=== PATIENT | female | born 1980 | race Caucasian/White ===

== ENCOUNTER 2023-01-24 06:55 | Emergency (ER) | payer SELFPAY ==
[2023-01-24 07:39] LABS: Lymphocytes % 26.6 % (15.3-44.8); MCV 93.3 fL (80-100); Platelets 250 thou/uL (152-406); RBC Red Blood Cell Count 4.28 M/uL (3.86-4.86)
[2023-01-24] MEDS ORDERED: ALBUTEROL 2.5 MG/3 ML NEB SOL ONE (07:55)
[2023-01-24] MEDS ORDERED: IPRATROPIUM BROM 0.5MG/2.5ML ONE (07:55)
[2023-01-24 07:57] LABS: Albumin 3.4 g/dL (3.4-5.0); Bilirubin Total 0.2 mg/dL (0.2-1.0); Potassium 3.3 mEq/L (3.5-5.1); Protein, Total 6.9 g/dL (6.4-8.2); Troponin High Sensitivity 14.2 pg/mL (<58.9)
--- NOTE | 2023-01-24 08:13 | RAD REPORT ---
EXAM DESCRIPTION: Tania Single View01/24/2023 7:57 am CLINICAL HISTORY: Shortness of breath COMPARISON: none FINDINGS: The lungs appear clear of acute infiltrate. The heart is normal size IMPRESSION: No acute abnormalities displayed
--- NOTE | 2023-01-24 08:27 | EDPHYS ---
Physician Documentation [facility] Name: Sparkle Fang Age: 42 yrs Sex: Female : 1980 Arrival Date: 01/24/2023 Time: 06:55 Bed 6 Private MD: ED Physician Filiberto Rausch HPI: 01/24 07:29 This 42 yrs old Female presents to ER via EMS with complaints of Asthma. rt 07:29 Patient presents to the ED with asthma exacerbation. She was seen multiple times at [facility] for the same, was recently admitted and is currently on a dose of steroids. She states that her symptoms acutely worsened at about 6 AM. Patient received a DuoNeb, Solu-Medrol by EMS, states that this is modestly improved her symptoms. Denies other acute complaints at this time. Symptoms are moderate severity, no other aggravating or alleviating factors.. Historical: - Allergies: 07:06 PENICILLINS; ha1 07:06 Latex, Natural Rubber; ha1 - PMHx: 07:06 Asthma; ha1 - Immunization history:: Adult Immunizations up to date. - Social history:: Smoking status: Patient/guardian denies using tobacco, Stopped _ months ago 1. - Family history:: not pertinent. ROS: 07:29 Constitutional: Negative for fever, chills, and weight loss, Cardiovascular: Negative rt for chest pain, palpitations, and edema, Abdomen/GI: Negative for abdominal pain, nausea, vomiting, diarrhea, and constipation, MS/Extremity: Negative for injury and deformity, Skin: Negative for injury, rash, and discoloration, Neuro: Negative for headache, weakness, numbness, tingling, and seizure, Psych: Negative for depression, anxiety, suicide ideation, homicidal ideation, and hallucinations. 07:29 Respiratory: Positive for cough, shortness of breath, wheezing. Exam: 07:29 Constitutional: This is a well developed, well nourished patient who is awake, alert, rt and in no acute distress. Head/Face: Normocephalic, atraumatic. Chest/axilla: Normal chest wall appearance and motion. Nontender with no deformity. No lesions are appreciated. Cardiovascular: Regular rate and rhythm with a normal S1 and S2. No gallops, murmurs, or rubs. Normal PMI, no JVD. No pulse deficits. Abdomen/GI: Soft, non-tender, with normal bowel sounds. No distension or tympany. No guarding or rebound. No evidence of tenderness throughout. Skin: Warm, dry with normal turgor. Normal color with no rashes, no lesions, and no evidence of cellulitis. MS/ Extremity: Pulses equal, no cyanosis. Neurovascular intact. Full, normal range of motion. Neuro: Awake and alert, GCS 15, oriented to person, place, time, and situation. Cranial nerves II-XII grossly intact. Motor strength 5/5 in all extremities. Sensory grossly intact. Cerebellar exam normal. Normal gait. Psych: Awake, alert, with orientation to person, place and time. Behavior, mood, and affect are within normal limits. 07:29 Respiratory: Faint wheezes heard on all lung luna, no respiratory distress. 08:03 ECG was reviewed by the Attending Physician. rt Vital Signs: 07:01 BP 132 / 75; Pulse 88; Resp 20 S; Temp 97.9(O); Pulse Ox 95% on 2 lpm NC; Weight 95.25 ha1 kg; Height 5 ft. 8 in. ; 07:50 BP 133 / 80; Pulse 78; Resp 22; Pulse Ox 100% on Nebulizer Mask; ld1 08:35 BP 144 / 86; Pulse 82; Resp 18; Pulse Ox 100% on R/A; Pain 0/10; ld1 07:01 Body Mass Index 31.93 (95.25 kg, 172.72 cm) ha1 08:35 Pain Scale: Adult ld1 MDM: 07:01 Patient medically screened. rt 08:28 Differential diagnosis: acute asthma, CHF, Pneumonia. Antibiotic administration: Not rt indicated, the patient does not have an appreciated infiltrate. Data reviewed: vital signs, nurses notes, lab test result(s), EKG, radiologic studies. I considered the following discharge prescriptions or medication management in the emergency department Medications were administered in the Emergency Department. See MAR. Independent interpretation of the following test(s) in the Emergency Department X-Ray: My interpretation is No consolidation seen on interpretation of the x-ray images. Test considered but Not performed: CT: Low suspicion for PE, CT angiogram not indicated. Care significantly affected by the following chronic conditions: Asthma. Counseling: I had a detailed discussion with the patient and/or guardian regarding the historical points, exam findings, and any diagnostic results supporting the discharge/admit diagnosis, lab results, radiology results, the need for outpatient follow up, Already taking steroids, repeat prescription not needed. Response to treatment: the patient's symptoms have markedly improved after treatment. 01/24 07:08 Order name: CBC with Diff; Complete Time: 08:04 rt 01/24 07:08 Order name: CMP; Complete Time: 08:04 rt 01/24 07:08 Order name: Troponin High Sensitivity; Complete Time: 08:04 rt 01/24 07:08 Order name: BNP; Complete Time: 08:04 rt 01/24 07:08 Order name: Chest Single View XRAY; Complete Time: 08:14 rt 01/24 07:08 Order name: EKG; Complete Time: 07:09 rt 01/24 07:08 Order name: EKG - Nurse/Tech; Complete Time: 07:49 rt EC:03 Rate is 78 beats/min. Rhythm is regular, Normal Sinus Rhythm with No ectopy. QRS [place] rt is Normal. NV interval is normal. QRS interval is normal. QT interval is normal. No Q waves. T waves are Normal. No ST changes noted. Interpreted by me. Administered Medications: 07:49 Drug: Albuterol Inhalation 2.5 mg Route: Inhalation; ld1 07:49 Drug: Ipratropium Inhalation Aerosol 0.5 mg Route: Inhalation; ld1 Disposition Summary: 01/24/23 08:26 Discharge Ordered Location: Home rt Problem: an acute exacerbation rt Symptoms: have improved rt Condition: Stable rt Diagnosis - Unspecified asthma with (acute) exacerbation rt Followup: rt - With: Private Physician - When: 2 - 3 days - Reason: Discharge Instructions: - Discharge Summary Sheet rt - Asthma, Adult rt Forms: - Medication Reconciliation Form rt - Thank You Letter rt - Antibiotic Education rt - Prescription Opioid Use rt - Patient Portal Instructions rt - Leadership Thank You Letter rt Prescriptions: - Albuterol Sulfate 2.5 mg /3 mL (0.083 %) Inhalation Solution for Nebulization - inhale 1 unit by NEBULIZATION route every 4 hours As needed; 90 unit; Refills: rt 0, Product Selection Permitted Signatures: Dispatcher [employer] Ary Sam RN RN ld1 Berenice May RN RN ha1 Filiberto Rausch MD MD rt
--- NOTE | 2023-01-24 08:27 | ER ---
Nurse's Notes [facility] Name: Sparkle Fang Age: 42 yrs Sex: Female : 1980 Arrival Date: 01/24/2023 Time: 06:55 Bed 6 Private MD: Diagnosis: Unspecified asthma with (acute) exacerbation Presentation: 01/24 07:01 Chief complaint: EMS states: 42 year old female reports shortness of breath. Pt. ha1 believes it is due to her asthma. on route breathing treatment and Solu-Medrol was given. Coronavirus screen: Vaccine status: Patient reports being unvaccinated. Ebola Screen: No symptoms or risks identified at this time. Initial Sepsis Screen: Does the patient meet any 2 criteria? No. Patient's initial sepsis screen is negative. Does the patient have a suspected source of infection? No. Patient's initial sepsis screen is negative. Risk Assessment: Do you want to hurt yourself or someone else? Patient reports no desire to harm self or others. Onset of symptoms was January 24, 2023. 07:01 Method Of Arrival: EMS: [facility] 07:01 Acuity: DARON 3 ha1 Triage Assessment: 06:58 General: Appears uncomfortable, Behavior is cooperative. Pain: Denies pain. EENT: No ha1 signs and/or symptoms were reported regarding the EENT system. Neuro: Level of Consciousness is awake, alert, obeys commands, Oriented to person, place, time, situation. Cardiovascular: Reports shortness of breath, Patient's skin is warm and dry. Respiratory: Reports shortness of breath at rest Airway is patent Respiratory effort is even, unlabored, Respiratory pattern is regular, symmetrical, Breath sounds with wheezes bilaterally. GI: No signs and/or symptoms were reported involving the gastrointestinal system. : No signs and/or symptoms were reported regarding the genitourinary system. Derm: Skin is pink, warm \T\ dry. Musculoskeletal: Circulation, motion, and sensation intact. Range of motion: intact in all extremities. Historical: - Allergies: 07:06 PENICILLINS; ha1 07:06 Latex, Natural Rubber; ha1 - PMHx: 07:06 Asthma; ha1 - Immunization history:: Adult Immunizations up to date. - Social history:: Smoking status: Patient/guardian denies using tobacco, Stopped _ months ago 1. - Family history:: not pertinent. Screenin:08 Abuse screen: Denies threats or abuse. Denies injuries from another. Nutritional ha1 screening: No deficits noted. Tuberculosis screening: No symptoms or risk factors identified. 07:50 [facility] ED Fall Risk Assessment (Adult) History of falling in the last 3 months, ld1 including since admission No falls in past 3 months (0 pts). Assessment: 07:50 General: Appears in no apparent distress. comfortable, Behavior is calm, cooperative, ld1 appropriate for age. Pain: Denies pain. Neuro: Level of Consciousness is awake, alert, obeys commands, Oriented to person, place, time, situation. Cardiovascular: Capillary refill < 3 seconds Patient's skin is warm and dry. Rhythm is sinus rhythm. Respiratory: Airway is patent Respiratory effort is even, unlabored. GI: Abdomen is round non-distended. : No signs and/or symptoms were reported regarding the genitourinary system. EENT: No signs and/or symptoms were reported regarding the EENT system. Derm: No signs and/or symptoms reported regarding the dermatologic system. Musculoskeletal: No signs and/or symptoms reported regarding the musculoskeletal system. 08:35 Reassessment: Patient appears in no apparent distress at this time. No changes from ld1 previously documented assessment. Patient and/or family updated on plan of care and expected duration. Pain level reassessed. Patient is alert, oriented x 3, equal unlabored respirations, skin warm/dry/pink. Patient states feeling better. Patient states symptoms have improved. Vital Signs: 07:01 BP 132 / 75; Pulse 88; Resp 20 S; Temp 97.9(O); Pulse Ox 95% on 2 lpm NC; Weight 95.25 ha1 kg; Height 5 ft. 8 in. ; 07:50 BP 133 / 80; Pulse 78; Resp 22; Pulse Ox 100% on Nebulizer Mask; ld1 08:35 BP 144 / 86; Pulse 82; Resp 18; Pulse Ox 100% on R/A; Pain 0/10; ld1 07:01 Body Mass Index 31.93 (95.25 kg, 172.72 cm) ha1 08:35 Pain Scale: Adult ld1 ED Course: 06:58 Patient arrived in ED. as6 06:58 Patient has correct armband on for positive identification. Bed in low position. Call ha1 light in reach. Side rails up X 1. 06:59 Filiberto Rausch MD is Attending Physician. rt 07:06 Triage completed. ha1 07:08 Maintain EMS IV. Dressing intact. Site clean \T\ dry. Gauge \T\ site: 20 darvin right AC. hernandez 1 07:33 CMP Sent. ds4 07:33 CBC with Diff Sent. ds4 07:49 Ary Varma, RN is Primary Nurse. ld1 07:50 No provider procedures requiring assistance completed. ld1 07:50 surveillance monitor on. Pulse ox on. NIBP on. Door closed. Noise minimized. Warm blanket ld1 given. 07:59 Chest Single View XRAY In Process Unspecified. EDMS 08:35 IV discontinued, intact, bleeding controlled, No redness/swelling at site. ld1 08:35 Arm band placed on right wrist. ld1 Administered Medications: 07:49 Drug: Albuterol Inhalation 2.5 mg Route: Inhalation; ld1 07:49 Drug: Ipratropium Inhalation Aerosol 0.5 mg Route: Inhalation; ld1 Medication: 07:50 VIS not applicable for this client. ld1 Outcome: 08:26 Discharge ordered by MD. rt 08:34 Discharged to home ambulatory. ld1 08:34 Condition: stable 08:34 Discharge instructions given to patient, Instructed on discharge instructions, follow up and referral plans. medication usage, Demonstrated understanding of instructions, follow-up care, medications, Prescriptions given X 1. 08:35 Patient left the ED. ld1 Signatures: Dispatcher [employer] EDMS Tommy Tyson ds4 Ary Varma, AMELIA CISNEROS ld1 Chuy Baez RN RN as6 Berenice May RN RN 1 Filiberto Rausch MD MD rt
[2023-01-24 08:48] VITALS: TEMP 97.9
[2023-01-24 08:50] VITALS: O2SAT 100
[2023-01-24 08:51] VITALS: BP 144/86
--- NOTE | 2023-01-25 13:04 | EKG ---
Test Date: 2023-01-24 Test Time: 07:51:51 Sanitary Plumber: ELBERT MEASUREMENT RESULTS: Intervals: Rate: 78 OH: 118 QRSD: 100 QT: 382 QTc: 435 [place]: P: 15 OH: 118 QRS: 76 T: 27 INTERPRETIVE STATEMENTS: Normal sinus rhythm Normal ECG No previous ECG available for comparison Electronically Signed On 01-25-23 13:01:25 CDT by Hakan Sweet
== END 2023-01-24 08:35 | disposition home or self-care (01) ==
LOC: ER 06:55
DX: J45.901 Unspecified asthma with (acute) exacerbation (principal)
CPT/HCPCS: 36415; 71045; 80053; 83880; 84484; 85025; 93005; 99285; J7613; J7644